=== PATIENT | male | born 1960 | race Caucasian/White ===

== ENCOUNTER → 2016-11-28 | Outpatient (CLI) | payer MEDICAID | LOC: FCPNEURO 21:30 | PROVIDERS: ATTEND Student in an Organized Health Care Education/Training Program | DX: G47.33 Obstructive sleep apnea (adult) (pediatric) (principal) ==

== ENCOUNTER 2017-09-24 13:56 | Emergency (ER) | payer MEDICAID ==
--- NOTE | 2017-09-24 14:05 | EDPHY ---
H & P Stated Complaint: [place] chronic [place] pain /is out of meds Time Seen by Provider: 09/24/17 14:04 - Personal History Current Tetanus/Diphtheria Vaccine: Yes - Medical/Surgical History Hx Asthma: No Hx Chronic Respiratory Disease: No Hx Diabetes: No Hx Cardiac Disease: No Hx Renal Disease: No Hx Cirrhosis: No Hx Alcoholism: No Hx HIV/AIDS: No Hx Splenectomy or Spleen Trauma: No Other PMH: back pain l shoulder pain - Social History Smoking Status: Never smoked Constitutional: Initial Vital Signs Temperature (C) 36.6 C 09/24/17 13:58 Heart Rate 57 L 09/24/17 13:58 Respiratory Rate 18 09/24/17 13:58 Blood Pressure 103/71 09/24/17 13:58 O2 Sat (%) 96 09/24/17 13:58 O2 Delivery Mode Room Air Allergies/Adverse Reactions: No Known Allergies Allergy (Unverified 09/24/17 13:57) Home Medications: Medication Instructions Recorded Hydrocodone-Acetamin 10-300 mg 09/24/17 Ibuprofen [Motrin] 800 mg PO Q8 #20 tab 09/24/17 Medical Decision Making ED Course/Re-evaluation: CHIEF COMPLAINT: Back pain HISTORY OF PRESENT ILLNESS: The patient is a 57 y/o male with a history of chronic back pain complaining of worsening back pain after running out of Vicodin which he takes 2-3 times a day. He initially went to [facility], who will only do injections and no pain medications. He then went to [facility] and has started the intake process. His physician at [facility] advised that the patient present to the emergency department for the pain as they are unable to see the patient and prescribe him medications for 2 weeks. Denies chest pain, shortness of breath, abdominal pain, urinary or bowel complaints, numbness, paresthesias, fever. REVIEW OF SYSTEMS: A 10 point review of systems was performed and is negative with the exception of the elements mentioned in the history of present illness. PHYSICAL EXAM: HR, BP, O2 Sat, RR. Temp noted General Appearance: Alert, well hydrated, appropriate, and non-toxic appearing. Head: Atraumatic without scalp tenderness or obvious injury Eyes: Pupils equal, round, reactive to light and accommodation, EOMI, no trauma , no injection. Ears: Clear bilaterally, no perforation, normal landmarks Nose: Atraumatic, no rhinorrhea, clear. Throat: There is no erythema or exudates, no lesions, normal tonsils, mucus membranes moist. Neck: Supple, nontender, no lymphadenopathy. Respiratory: No retractions, no distress, no wheezes, and no accessory muscle use. Lungs are clear to auscultation bilaterally. Cardiovascular: Regular rate and rhythm, no murmurs, rubs, or gallops. Bilateral carotid, radial, dorsalis pedis, and posterior tibial pulses intact. Good capillary refill all extremities. Gastrointestinal: Abdomen is soft, nontender, non-distended, no masses, no rebound, no guarding, no peritoneal signs. Musculoskeletal: Normal active ROM of all extremities, atraumatic. Neurological: Alert, appropriate, and interactive. Nonfocal neuro. Skin: No rashes, good turgor, no nodules on palpation. Past medical history: Chronic back pain Past surgical history: Denies Family history: Denies Social history: Recently moved to [place] from [place], single, not employed DIFFERENTIAL DIAGNOSIS: The differential diagnosis for the patient's back pain included but was not limited to musculoskeletal pain, epidural abscess, herniated disk, spinal fracture, and intra-abdominal causes including urinary system. MEDICAL DECISION MAKING: The patient is a 57 y/o male with a history of chronic back pain presenting with worsening back pain after running out of Vicodin which he takes 2-3 times a day. He is a new patient at [facility] and [facility] after moving to [place] from [place]. 1412: Consulted with case management regarding patient's symptoms and care. 1527: Consulted with case management regarding this patient. This patient was seen by Dr. Butt at [facility], who declined writing pain medications. [facility]. During this visit, the patient did not discuss his back pain, so he did not have Dr. Wilson write a Vicodin prescription. On August 13, the patient was prescribed #90 10mg Vicodin's, which he gets every month. I will prescribe him 800mg Motrin. 1546: Reassessed patient and thoroughly discussed plan to not prescribe narcotics. He reports that his PCP refused to prescribe the patient chronic pain medications and he needs to go [facility]. I have advised him to follow up with his PCP and [facility]. Return precautions provided; patient is comfortable with this plan. Departure - Departure Disposition: Home, Routine, Self-Care Clinical Impression: Chronic back pain Qualifiers: Back pain location: low back pain Back pain laterality: midline Sciatica presence: without sciatica Qualified Code(s): M54.5 - Low back pain Condition: Good Instructions: Chronic Back Pain (ED) Additional Instructions: 1. Take Motrin as prescribed. 2. Followup with a online marketing specialist and your PCP within one week. 3. Return to the emergency department for severe pain, fever, numbness, difficulty walking, change in location or nature of pain or other concerns. 4. Use ibuprofen and Tylenol as directed. 5. Try using a heating pad. Referrals: Anu iWlson [Primary Care Provider] - As per Instructions [facility] [Outside] - As per Instructions Prescriptions: Ibuprofen [Motrin] 800 mg PO Q8 #20 tab Report Scribed for: Slim Lloyd Report Scribed by: Fartun Acosta Date of Report: 09/24/17 Time of Report: 14:06
[2017-09-24 15:58] VITALS: BP 146/95
--- NOTE | 2017-09-24 17:34 | ASMTCMCOM ---
CM Note CM Note Notes: Pt presented to the ED for back pain. Pt has a long history of chronic back pain and recently returned to [place] from [place]. Pt stated to ED Provider that he has run out of his chronic pain medications that were recently prescribed by his doctor in [place] and has not been able to get a new prescription since returning to [place]. Pt has lived on and off in [place] for the past several years. Pt's PCP in [place] is JESSEE Macdonald, at [facility]. This CM spoke w/Joanne at ([phone]) and he states pt was seen by Anu Wilson today and there was no mention of chronic pain medication needs. Joanne states Anu has left for the day and does not have any available appts this or Saturday and then she is out on vacation until 10/11. Pt has an appt w/Anu on 10/11. Pt also reported to ED MD that he is seen by Dr Butt at [facility] ([phone]) but they only will provide him w/injections and not prescriptions, so they referred him to [facility] ([phone]) for pain mgmt. Pt did make an appt w/[facility] but it is not until 09/26 and it is their policy to not provide prescriptions on the 1st visit. Sometimes the providers will write a prescription at the 2nd visit but it has to be 2-3 wks out from the 1st visit and even then it is not guaranteed they'll provide a prescription then. Pt was explained that the ED does not write for chronic pain medications and was recommended to follow up with Anu Wilson, [facility] and [facility]. CM available for further assistance if needed. Date Signed: 09/24/2017 05:34 PM Electronically Signed By:Kaya Morrison RN
--- NOTE | 2017-09-24 17:36 | ASDISCHSUM ---
Discharge Information Plan Status:Home with No Needs Medically Cleared to Leave: Discharge Date:09/24/2017 03:58 PM CM D/C Disposition:Home, Routine, Self-Care ADT D/C Disposition:Home, Routine, Self-Care Projected Discharge Date:09/24/2017 03:58 PM Transportation at D/C:None or Unknown Discharge Delay Reason: Follow-Up Date:09/24/2017 03:58 PM Discharge Slot: Final Diagnosis: Placement Information Patient Contact Information Contact Name:RAMYA Relationship: Address: Home Phone: Work Phone: City: Alternate Phone: State/[place] [employer] Code: Email: Financial Information Financial Class:Medicaid Primary Plan Desc:MEDICAID HEALTH FIRST [employer]S Primary Plan Number:[id number] Secondary Plan Desc: Secondary Plan Number: Assessment Information [facility] Progress Note CM Note CM Note Notes: Pt presented to the ED for back pain. Pt has a long history of chronic back pain and recently returned to [place] from [place]. Pt stated to ED Provider that he has run out of his chronic pain medications that were recently prescribed by his doctor in [place] and has not been able to get a new prescription since returning to [place]. Pt has lived on and off in [place] for the past several years. Pt's PCP in [place] is JESSEE Macdonald, at [facility]. This CM spoke w/Joanne at ([phone]) and he states pt was seen by Anu Wilson today and there was no mention of chronic pain medication needs. Joanne states Anu has left for the day and does not have any available appts this or Saturday and then she is out on vacation until 10/11. Pt has an appt w/Anu on 10/11. Pt also reported to ED MD that he is seen by Dr Butt at [facility] ([phone]) but they only will provide him w/injections and not prescriptions, so they referred him to [facility] ([phone]) for pain mgmt. Pt did make an appt w/[facility] but it is not until 09/26 and it is their policy to not provide prescriptions on the 1st visit. Sometimes the providers will write a prescription at the 2nd visit but it has to be 2-3 wks out from the 1st visit and even then it is not guaranteed they'll provide a prescription then. Pt was explained that the ED does not write for chronic pain medications and was recommended to follow up with Anu Wilson, [facility] and [facility]. CM available for further assistance if needed. Date Signed: 09/24/2017 05:34 PM Electronically Signed By:Kaya Morrison RN Intervention Information Intervention Type:Health Clinic Date of Service:09/24/2017 05:34 PM Patient Type:Emergency Room Staff Member:INGRID Morrison, Kaya Hours:1 Discipline:Inker Machine Severity: Comment:various conversations with [facility], [facility], and [facility]
== END 2017-09-24 15:58 | disposition home or self-care (01) ==
DX: M54.5 Low back pain (principal)